=== PATIENT | female | born 1960 | race Caucasian/White ===

== ENCOUNTER → 2018-04-30 | Outpatient (CLI) | payer BC ==
--- NOTE | 2018-05-01 00:16 | MR ---
EXAMINATION TYPE: MR brain wo/w con DATE OF EXAM: 04/30/2018 COMPARISON: NONE HISTORY: Headaches, Gadavist 10ml TECHNIQUE: Multiplanar, multisequence images of the brain and brainstem is performed without and with IV contras t, utilizing 7.5 mL intravenous Gadavist . FINDINGS: Ventricles have fairly normal size. There is no mass effect nor midline shift. There is no sign of intracranial hemorrhage. The campa-white matter structures have fairly normal signal pattern. There is no evidence of cerebral edema. Brainstem appears normal. Corpus callosum appears normal. Pham la turcica appears normal. Optic chiasm appears normal. There is no pathologic enhancement. IMPRESSION: Negative MR scan of the brain.
== END | disposition home or self-care (01) ==
LOC: RADMRIMAIN 18:21
PROVIDERS: ATTEND Psychiatry & Neurology Neurology
DX: D43.2 Neoplasm of uncertain behavior of brain, unspecified (principal); R42 Dizziness and giddiness
CPT/HCPCS: 70553; A9581

== ENCOUNTER → 2019-09-18 | Outpatient (CLI) | payer BC ==
--- NOTE | 2019-09-18 21:27 | MR ---
EXAMINATION TYPE: MR brain wo/w con DATE OF EXAM: 09/18/2019 COMPARISON: Prior MRI brain April 30, 2018 HISTORY: headaches, Hx of breast ca TECHNIQUE: Multiplanar, multisequence images of the brain and brainstem is performed without and with IV contras t, utilizing 9 mL intravenous Gadavist . FINDINGS: Diffusion weighted images demonstrate no evidence of a recent infarct or other diffusion ab normality. There is no extra-axial fluid collection or significant white matter signal abnormality. The ventricular system and cisternal spaces are normal in size and appearance. The brain volume is age appropriate. Midline structures demonstrate normal morphology. The craniocervical junction appears within normal limits. Post contrast images demonstrate no abnormal enhancement. The dural venous sinuses appear pa tent. The visualized sinuses are clear and the globes are intact. Nasal septum remains deviated to th e left of midline. IMPRESSION: Unremarkable study. No significant change from prior.
== END | disposition home or self-care (01) ==
LOC: RADMRIMAIN 15:48
PROVIDERS: ATTEND Internal Medicine Medical Oncology
DX: R51 Headache (principal); Z85.3 Personal history of malignant neoplasm of breast
CPT/HCPCS: 70553; A9585

== ENCOUNTER → 2019-12-21 | Outpatient (CLI) | payer BC ==
--- NOTE | 2019-12-21 15:35 | MR ---
EXAMINATION TYPE: MR cervical spine wo/w con DATE OF EXAM: 12/21/2019 COMPARISON: MRI brain dated 09/18/2019 HISTORY: Cervical disc disorder. History of breast cancer. TECHNIQUE: Multiplanar, multisequence images of the cervical spine were acquired utilizing 9 mL intravenous Gada vist gadolinium contrast. Diffusion weighted imaging was performed. FINDINGS: The cervical spine vertebral bodies maintain normal vertebral body height and alignment. Mu ltilevel disc desiccation is seen. Very mild patchy T2 hyperintensity of the right paracentral spinal cord at the C4-C5 level. There is slight volume loss of the cord at this level indicative of myeloma lacia. C2-C3: Broad-based disc bulge without spinal canal stenosis or neural foraminal narrowing. C3-C4: Left foraminal disc herniation and uncovertebral hypertrophy creating moderate left neural for aminal narrowing. Spinal canal and right neuroforamen are patent. C4-C5: Left foraminal disc herniation superimposed on a broad-based disc bulge. Bilateral uncovertebr al hypertrophy and facet arthropathy creating severe left and moderate right neural foraminal narrowi ng as well as mild spinal canal stenosis. Focal mild myelomalacia is also seen. C5-C6: Left foraminal annular tear and disc herniation are seen superimposed on a broad-based disc bu lge. There is moderate left neural foraminal narrowing, mild right neural foraminal narrowing and mil d spinal canal stenosis. C6-C7: Disc desiccation without spinal canal stenosis or neural foraminal narrowing. C7-T1: Disc desiccation without spinal canal stenosis or neural foraminal narrowing. No abnormal enhancement is seen of the cervical spine and post contrast images. IMPRESSION: 1. Left foraminal disc herniation at C4-C5 as well as degenerative changes create severe left neural foraminal narrowing, moderate right neural foraminal narrowing and mild spinal canal stenosis and als o resultant mild focal myelomalacia of the cervical spinal cord. 2. Left foraminal disc herniation at C3-C4 creates moderate left neural foraminal narrowing. Spinal c anal is patent. 3. Left foraminal disc herniation at C5-C6 and broad-based disc bulge contribute to moderate left tiburcio ral foraminal narrowing, mild right neural foraminal narrowing and mild spinal canal stenosis. 4. No abnormal postcontrast enhancement of the cervical spine. 5. CT C3, C6-C7 and C7-T1 display mild degenerative disc disease without disc herniation.
== END | disposition home or self-care (01) ==
LOC: RADMRIMAIN 11:54
PROVIDERS: ATTEND Psychiatry & Neurology Neurology
DX: M48.02 Spinal stenosis, cervical region (principal); M50.221 Other cervical disc displacement at C4-C5 level; M50.31 Other cervical disc degeneration, high cervical region; M50.33 Other cervical disc degeneration, cervicothoracic region; M47.812 Spondylosis without myelopathy or radiculopathy, cervical region; G95.89 Other specified diseases of spinal cord
CPT/HCPCS: 72156; A9585

== ENCOUNTER → 2020-01-06 | Outpatient (CLI) | payer BC ==
--- NOTE | 2020-01-14 09:09 | MM ---
Reason for exam: additional evaluation requested from prior study. Last mammogram was performed 1 year and 4 months ago. History: Patient is postmenopausal and has history of breast cancer at age 58. Radiation therapy of the left breast, May 2019. Chemotherapy, November 2018. Mastectomy of the left breast, September 2018. Took hormonal contraceptives for 6 years. Physical Findings: Nurse did not find any significant physical abnormalities on exam. MG 3D Diag Mammo W/Cad LUIS Bilateral CC and MLO view(s) were taken. Prior study comparison: September 19, 2018, left breast mammogram, performed at [facility]. August 13, 2018, bilateral mammogram, performed at [facility]. January 09, 2016, bilateral mammogram, performed at [facility]. May 18, 2014, bilateral mammogram, performed at [facility]. The breast tissue is heterogeneously dense. This may lower the sensitivity of mammography. No significant new findings when compared with previous films. These results were verbally communicated with the patient on 01/14/20. ASSESSMENT: Benign, BI-RAD 2 RECOMMENDATION: Follow-up diagnostic mammogram of both breasts in 1 year.
== END | disposition home or self-care (01) ==
LOC: RADMAMWWP 15:14
PROVIDERS: ATTEND Internal Medicine Medical Oncology
DX: C50.412 Malignant neoplasm of upper-outer quadrant of left female breast (principal)
CPT/HCPCS: 77062; 77066

== ENCOUNTER → 2021-02-10 | Outpatient (CLI) | payer OTHER ==
--- NOTE | 2021-02-13 14:46 | MM ---
Reason for exam: additional evaluation requested from prior study. Last mammogram was performed 1 year and 1 month ago. History: Patient is postmenopausal and has history of breast cancer at age 58. Radiation therapy of the left breast, May 2019. Chemotherapy, November 2018. Mastectomy of the left breast, September 2018. Took hormonal contraceptives for 6 years. Physical Findings: Nurse did not find any significant physical abnormalities on exam. MG 3D Diag Mammo W/Cad LUIS Bilateral CC and MLO view(s) were taken. Prior study comparison: January 06, 2020, bilateral MG 3d diag mammo w/cad LUIS. September 19, 2018, left breast mammogram, performed at [place]. The breast tissue is heterogeneously dense. This may lower the sensitivity of mammography. Finding #1: There is a 10 mm obscured round mass in the left breast. Finding #2: There are typically benign round calcifications in both breasts. Distortion left upper outer quadrant. New finding since January 06, 2020. These results were verbally communicated with the patient and result sheet given to the patient on 02/10/21. ASSESSMENT: Incomplete: need additional imaging evaluation, BI-RAD 0 RECOMMENDATION: Ultrasound of the left breast.
--- NOTE | 2021-02-13 14:47 | USB ---
Reason for exam: additional evaluation requested from abnormal screening. History: Patient is postmenopausal and has history of breast cancer at age 58. Radiation therapy of the left breast, May 2019. Chemotherapy, November 2018. Mastectomy of the left breast, September 2018. Took hormonal contraceptives for 6 years. US Breast Limited LT Left limited breast ultrasound including focal area of concern, retroareolar and axilla demonstrates a 1.3 x 0.8 x 0.7cm benign lymph node at the axilla. These results were verbally communicated with the patient and result sheet given to the patient on 02/10/21. ASSESSMENT: Probably benign, BI-RAD 3 RECOMMENDATION: Follow-up diagnostic mammogram and ultrasound of the left breast in 6 months.
== END | disposition home or self-care (01) ==
LOC: RADMAMWWP 09:27
PROVIDERS: ATTEND Obstetrics & Gynecology
DX: N63.20 Unspecified lump in the left breast, unspecified quadrant (principal); Z85.3 Personal history of malignant neoplasm of breast; Z78.0 Asymptomatic menopausal state
CPT/HCPCS: 77062; 77066

== ENCOUNTER → 2021-06-22 | Outpatient (CLI) | payer OTHER ==
--- NOTE | 2021-06-23 05:00 | MR ---
EXAMINATION TYPE: MR wrist RT wo con DATE OF EXAM: 06/22/2021 COMPARISON: None HISTORY: Rt wrist pain Multiplanar multiecho imaging of the right wrist without contrast. The carpal bones are intact. Radiocarpal joint is anatomic. There is mild wrist joint effusion. There is small rounded 7 mm fluid collection at the anterior aspect of the distal ulna consistent with a s ynovial cyst. There is increased soft tissue signal on the dorsum of the distal radius and ulna. The flexor and extensor tendons appear intact. I see no focal bone destruction. Intercarpal joint spaces are fairly normal. The visualized metacarpals are intact. Triangular cartilage appears intact. IMPRESSION: Mild soft tissue edema on the dorsum of the radiocarpal joint. Small wrist joint effusion is suggesti ve of some mild nonspecific synovitis. No fracture seen. No significant joint space narrowing.
== END | disposition home or self-care (01) ==
LOC: RADMRIMAIN 08:17
PROVIDERS: ATTEND Orthopaedic Surgery
DX: M25.439 Effusion, unspecified wrist (principal); M79.89 Other specified soft tissue disorders

== ENCOUNTER → 2021-06-23 | Outpatient (CLI) | payer OTHER ==
[2021-06-23 22:56] LABS: Basophils # (A) 0.04 X 10*3/uL (0.00-0.10); Basophils % (A) 0.7 %; Eosinophils # (A) 0.15 X 10*3/uL (0.04-0.35); Eosinophils % (A) 2.6 %; HCT 37.5 % (37.2-46.3); HGB 12.2 g/dL (12.0-15.0); Lymphocytes # (A) 2.14 X 10*3/uL (0.90-5.00); Lymphocytes % (A) 37.6 %; MCH 30.3 pg (27.0-32.0); MCHC 32.5 g/dL (32.0-37.0); MCV 93.3 fL (80.0-97.0); Monocytes # (A) 0.74 X 10*3/uL (0.20-1.00); Neutrophils # (A) 2.61 X 10*3/uL (1.80-7.70); Neutrophils % (A) 45.9 %; Platelet Count 312 X 10*3/uL (140-440); RBC 4.02 X 10*6/uL (4.10-5.20); RDW 13.1 % (11.5-14.5); WBC 5.69 X 10*3/uL (4.50-10.00)
[2021-06-24 01:08] LABS: Erythrocyte Sedimentation Rate 12 mm/Hr (0-30)
[2021-06-24 06:02] LABS: C Reactive Protein <0.4 mg/dL (0.0-0.8); Rheumatoid Factor, Qnt 6 IU/mL (0-15); Uric Acid 3.4 mg/dL (2.9-7.7)
[2021-06-24 12:16] LABS: HLA B27 NEGATIVE
== END | disposition home or self-care (01) ==
LOC: LABWHC1 14:14
PROVIDERS: ATTEND Orthopaedic Surgery
DX: M25.532 Pain in left wrist (principal); M25.531 Pain in right wrist
CPT/HCPCS: 36415; 84550; 85025; 85652; 86038; 86140; 86431; 86812

== ENCOUNTER → 2021-08-14 | Outpatient (CLI) | payer MEDICARE ==
--- NOTE | 2021-08-14 14:59 | MM ---
Reason for exam: follow-up at short interval from prior study. Last mammogram was performed 6 months ago. History: Patient is postmenopausal and has history of breast cancer at age 58. Radiation therapy of the left breast, May 2019. Chemotherapy, November 2018. Mastectomy of the left breast, September 2018. Took hormonal contraceptives for 6 years. Physical Findings: Nurse did not find any significant physical abnormalities on exam. MG 3D Diag Mammo W/Cad LT CC and MLO view(s) were taken of the left breast. Prior study comparison: February 10, 2021, bilateral MG 3d diag mammo w/cad LUIS. January 06, 2020, bilateral MG 3d diag mammo w/cad LUIS. The breast tissue is heterogeneously dense. This may lower the sensitivity of mammography. Density in question 3 o'clock left breast is less conspicuous. These results were verbally communicated with the patient and result sheet given to the patient on 08/14/21. ASSESSMENT: Incomplete: need additional imaging evaluation, BI-RAD 0 RECOMMENDATION: Ultrasound of the left breast.
--- NOTE | 2021-08-14 15:00 | USB ---
Reason for exam: additional evaluation requested from abnormal screening. History: Patient is postmenopausal and has history of breast cancer at age 58. Radiation therapy of the left breast, May 2019. Chemotherapy, November 2018. Mastectomy of the left breast, September 2018. Took hormonal contraceptives for 6 years. US Breast Limited LT Technologist: Diana Velasquez Left limited breast ultrasound including focal area of concern, retroareolar and axilla demonstrates 0.5cm lymph node short axilla at the axilla. Scanned 3-6 o'clock. These results were verbally communicated with the patient and result sheet given to the patient on 08/14/21. ASSESSMENT: Benign, BI-RAD 2 RECOMMENDATION: Follow-up diagnostic mammogram of both breasts in 6 months.
== END | disposition home or self-care (01) ==
LOC: RADMAMWWP 13:24
PROVIDERS: ATTEND Internal Medicine Medical Oncology
DX: C50.412 Malignant neoplasm of upper-outer quadrant of left female breast (principal)
CPT/HCPCS: 77065; 76642; G0279; 77061

== ENCOUNTER → 2022-03-08 | Outpatient (CLI) | payer MEDICARE ==
--- NOTE | 2022-03-08 13:41 | MM ---
Reason for exam: additional evaluation requested from prior study. Last mammogram was performed 7 months ago. History: Patient is postmenopausal and has history of breast cancer at age 58. Radiation therapy of the left breast, May 2019. Chemotherapy, November 2018. Mastectomy of the left breast, September 2018. Took hormonal contraceptives for 6 years. Physical Findings: A clinical breast exam by your physician is recommended on an annual basis and results should be correlated with mammographic findings. MG 3D Diag Mammo W/Cad LUIS Bilateral CC and MLO view(s) were taken. Prior study comparison: August 14, 2021, left breast MG 3d diag mammo w/cad LT. February 10, 2021, bilateral MG 3d diag mammo w/cad LUIS. The breast tissue is heterogeneously dense. This may lower the sensitivity of mammography. Asymmetries are unchanged bilaterally. Post surgical and post therapy change left breast. Ongoing 6 month follow up to complete the 3 year post operative/post treatment surveillance. Results were given to the patient verbally at the time of the exam. ASSESSMENT: Probably benign, BI-RAD 3 RECOMMENDATION: Follow-up diagnostic mammogram of the left breast in 6 months.
== END | disposition home or self-care (01) ==
LOC: RADMAMWWP 12:51
PROVIDERS: ATTEND Obstetrics & Gynecology
DX: R92.8 Other abnormal and inconclusive findings on diagnostic imaging of breast (principal); Z85.3 Personal history of malignant neoplasm of breast; Z78.0 Asymptomatic menopausal state; Z92.3 Personal history of irradiation; Z90.12 Acquired absence of left breast and nipple
CPT/HCPCS: 77066; G0279; 77062

== ENCOUNTER → 2022-09-12 | Outpatient (CLI) | payer MEDICARE ==
--- NOTE | 2022-09-12 10:10 | MM ---
Reason for Exam: Follow-up at short interval from prior study. Last screening mammogram was performed 6 month(s) ago. Indicated Problems: Pain of the left side (Focal) for 6 Week(s) : 6 oclock pain. Patient History: Menarche at age 15. First Full-Term at age 27. Postmenopausal. Breast cancer, left, age 58. Previous chest radiation therapy. Previous chemotherapy at age 59. Patient used Hormonal Contraceptives for 6 years. 10/10/2018, Lumpectomy on the Left side. 11/2018, Chemotherapy. 05/2019, Radiation Therapy on the left side. Prior Study Comparison: 02/10/2021 Bilateral Diagnostic Mammogram, [facility]. 08/14/2021 Left Diagnostic Mammogram, [facility]. 03/08/2022 Bilateral Diagnostic Mammogram, [facility]. Tissue Density: Left: The breast tissue is heterogeneously dense. This may lower the sensitivity of mammography. Findings: Analyzed By CAD. Postsurgical and posttherapy changes to the left breast. Asymmetry is unchanged within the left breast. Stable calcifications within the left breast. No significant change from prior exams. Overall Assessment: Benign, BI-RAD 2 Management: Screening Mammogram of both breasts in 1 year. A clinical breast exam by your physician is recommended on an annual basis and results should be correlated with mammographic findings. This exam should not preclude additional follow-up of suspicious palpable abnormalities. Results were given to the patient verbally at the time of exam. Electronically signed and approved by: Chun Sepulveda D.O.
--- NOTE | 2022-09-12 10:10 | MM ---
Reason for Exam: Follow-up at short interval from prior study. Last screening mammogram was performed 6 month(s) ago. Indicated Problems: Pain of the left side (Focal) for 6 Week(s) : 6 oclock pain. Patient History: Menarche at age 15. First Full-Term at age 27. Postmenopausal. Breast cancer, left, age 58. Previous chest radiation therapy. Previous chemotherapy at age 59. Patient used Hormonal Contraceptives for 6 years. 10/10/2018, Lumpectomy on the Left side. 11/2018, Chemotherapy. 05/2019, Radiation Therapy on the left side. Prior Study Comparison: 02/10/2021 Bilateral Diagnostic Mammogram, [facility]. 08/14/2021 Left Diagnostic Mammogram, [facility]. 03/08/2022 Bilateral Diagnostic Mammogram, [facility]. Tissue Density: Left: The breast tissue is heterogeneously dense. This may lower the sensitivity of mammography. Findings: Analyzed By CAD. Postsurgical and posttherapy changes to the left breast. Asymmetry is unchanged within the left breast. Stable calcifications within the left breast. No significant change from prior exams. Overall Assessment: Benign, BI-RAD 2 Management: Screening Mammogram of both breasts in 1 year. A clinical breast exam by your physician is recommended on an annual basis and results should be correlated with mammographic findings. This exam should not preclude additional follow-up of suspicious palpable abnormalities. Results were given to the patient verbally at the time of exam. Electronically signed and approved by: Chun Sepulveda D.O.
== END | disposition home or self-care (01) ==
LOC: RADMAMWWP 09:27
PROVIDERS: ATTEND Obstetrics & Gynecology
DX: R92.8 Other abnormal and inconclusive findings on diagnostic imaging of breast (principal); Z78.0 Asymptomatic menopausal state; Z85.3 Personal history of malignant neoplasm of breast
CPT/HCPCS: 77065; G0279; 77061

== ENCOUNTER → 2023-04-10 | Outpatient (CLI) | payer MEDICARE ==
--- NOTE | 2023-04-10 10:27 | MM ---
Reason for Exam: Follow-up at short interval from prior study. Last mammogram was performed 1 year(s) and 1 month(s) ago. Patient History: Menarche at age 15. First Full-Term at age 27. Postmenopausal. Breast Cancer, Left, age 58. Previous chest radiation therapy at age 59. Previous chemotherapy at age 59. Patient used Hormonal Contraceptives for 6 year. 10/10/2018, Lumpectomy on the Left side. 11/2018, Chemotherapy. 05/2019, Radiation Therapy on the left side. Prior Study Comparison: 08/14/2021 Left Diagnostic Mammogram, [facility]. 03/08/2022 Bilateral Diagnostic Mammogram, [facility]. 09/12/2022 Left MG 3D diag mammo w/cad , [facility]. Tissue Density: The breast tissue is heterogeneously dense. This may lower the sensitivity of mammography. Findings: Analyzed By CAD. Lateral breast calcifications. Biopsy clips in the left axilla. No new suspicious masses, calcifications or distortions. Overall Assessment: Benign, BI-RAD 2 Management: Screening Mammogram of both breasts in 1 year. Results were given to the patient verbally at the time of exam. Patient should continue monthly self-breast exams. A clinical breast exam by your physician is recommended on an annual basis. This exam should not preclude additional follow-up of suspicious palpable abnormalities. Note on Selma scores and lifetime risk: 1. A Selma score greater than 3% is considered moderate risk. If this is the case, consider specialist referral to assess eligibility for a risk reducing agent. 2. If overall lifetime risk for the development of breast cancer is 20% or higher, the patient may qualify for future screening with alternating mammogram and breast MRI. Electronically signed and approved by: Giuseppe Hayes DO
== END | disposition home or self-care (01) ==
LOC: RADMAMWWP 08:53
PROVIDERS: ATTEND Obstetrics & Gynecology
DX: R92.8 Other abnormal and inconclusive findings on diagnostic imaging of breast (principal); N64.4 Mastodynia; Z85.3 Personal history of malignant neoplasm of breast; Z78.0 Asymptomatic menopausal state; Z92.3 Personal history of irradiation
CPT/HCPCS: 77066; G0279; 77062

== ENCOUNTER 2023-12-25 07:31 | Emergency (ER) | payer MEDICARE ==
[2023-12-25 08:04] VITALS: RESP 18
--- NOTE | 2023-12-25 08:16 | ED ---
General Adult HPI - General Chief complaint: Abdominal Pain Stated complaint: Abd Pain-Transfer Time Seen by Provider: 12/25/23 07:35 Source: patient Mode of arrival: ambulatory Limitations: no limitations - History of Present Illness Initial comments: Dictation was produced using [employer] dictation software. please excuse any grammatical, word or spelling errors. Chief Complaint: 63-year-old female transferred from [facility] for left-sided kidney stone History of Present Illness: Patient 63-year-old female over the last 1 to 2 days she has been experiencing left-sided flank pain. States that she thought she may have hurt it from working out. Suddenly in the evening last night she states that the pain became very sharp to her left flank. She was seen at [facility] emergency department she was diagnosed with left-sided UPJ 9 mm kidney stone. According to documentation she was transferred here for pain control and urology consultation. Patient states that while en route to the emergency department her symptoms slightly improved however she was given a dose of Dilaudid. The ROS documented in this emergency department record has been reviewed and confirmed by me. Those systems with pertinent positive or negative responses have been documented in the HPI. All other systems are other negative and/or noncontributory. - Related Data Previous Rx's Medication Instructions Recorded HYDROcodone/APAP 5-325MG [[place] 1 tab PO Q6HR PRN 3 Days #12 tab 12/25/23 5-325] Allergies Allergy/AdvReac Type Severity Reaction Status Date / Time cephalexin [From Keflex] AdvReac Nausea Verified 12/25/23 08:02 Review of Systems ROS Statement: Those systems with pertinent positive or pertinent negative responses have been documented in the HPI. ROS Other: All systems not noted in ROS Statement are negative. Past Medical History History of Any Multi-Drug Resistant Organisms: None Reported Past Psychological History: No Psychological Hx Reported Smoking Status: Never smoker Past Alcohol Use History: None Reported Past Drug Use History: None Reported General Exam - General Exam Comments Initial Comments: PHYSICAL EXAM: General Impression: Alert and oriented x3, not in acute distress HEENT: Normocephalic atraumatic, extra-ocular movements intact, pupils equal and reactive to light bilaterally, mucous membranes moist. Cardiovascular: Heart regular rate and rhythm Chest: Able to complete full sentences, no retractions, no tachypnea Abdomen: abdomen soft, non-tender, non-distended, no organomegaly Musculoskeletal: Pulses present and equal in all extremities, no peripheral edema Motor: no focal deficits noted Neurological: CN II-XII grossly intact, no focal motor or sensory deficits noted Skin: Intact with no visualized rashes Psych: Normal affect and mood Limitations: no limitations Course Vital Signs 12/25/23 07:57 Temperature 98.0 F Pulse Rate 104 H Respiratory 18 Rate Blood Pressure 121/79 O2 Sat by Pulse 96 Oximetry - Reevaluation(s) Reevaluation #1: 12/25/23 08:15 Transfer documentation was reviewed. She had minimal red blood cells in the urine. CT scan was reviewed showing 9 mm UPJ stone. Patient is in no acute distress at the bedside. Labs were otherwise unremarkable. Medical Decision Making - Medical Decision Making Was pt. sent in by a medical professional or institution (, PA, GALLERY DIRECTOR, urgent care, hospital, or custodial...) When possible be specific @ -Transferred from outside emergency department Did you speak to anyone other than the patient for history (EMS, parent, family, police, friend...)? What history was obtained from this source @ -No Did you review nursing and triage notes (agree or disagree)? Why? @ -I reviewed and agree with nursing and triage notes Were old charts reviewed (outside hosp., previous admission, EMS record, old EKG, old radiological studies, urgent care reports/EKG's, custodial records)? Report findings @ -No old charts were reviewed Differential Diagnosis (chest pain, altered mental status, abdominal pain women, abdominal pain men, vaginal bleeding, musculoskeletal, weakness, fever, dyspnea, syncope, headache, dizziness, GI bleed, back pain, seizure, CVA, palpatations, mental health)? @ -Differential Abdominal Pain Women: Appendicitis, Cholecystitis, diverticulosis, ischemic bowel, pancreatitis, hepatitis, UTI, gastroenteritis, AAA, incarcerated hernia, bowel obstruction, constipation, inflammatory bowel, hepatitis, peptic ulcer disease, splenic infarction, perforated viscus, vulvitis, ovarian torsion, PID, kidney stone, placenta abruption, this is not meant to be an all-inclusive list EKG interpreted by me (3pts min.). @ -None done X-rays interpreted by me (1pt min.). @ -X-ray shows calcification in the left pelvis which may represent nephrolithi asis CT interpreted by me (1pt min.). @ -None done U/S interpreted by me (1pt. min.). @ -None done What testing was considered but not performed or refused? (CT, X-rays, U/S, labs)? Why? @ -None What meds were considered but not given or refused? Why? @ -None Did you discuss the management of the patient with other professionals (professionals i.e. DrCailin, PA, GALLERY DIRECTOR, lab, RT, psych nurse, certified social workers in health care, wet machine operator, teacher, community services officer, case packer)? Give summary @ -Case was discussed with on-call urology, Dr. Dacosta who recommends patient be discharged with outpatient follow-up. Was smoking cessation discussed for >3mins.? @ -No Was critical care preformed (if so, how long)? @ -No Were there social determinants of health that impacted care today? How? (Homelessness, low income, unemployed, alcoholism, drug addiction, transportation, low edu. Level, literacy, decrease access to med. care, care home, rehab)? @ -No Was there de-escalation of care discussed even if they declined (Discuss DNR or withdrawal of care, Hospice)? DNR status @ -No What co-morbidities impacted this encounter? (DM, HTN, Smoking, COPD, CAD, Cancer, CVA, ARF, Chemo, Hep., AIDS, mental health diagnosis, sleep apnea, morbid obesity)? @ -None Was patient admitted / discharged? Hospital course, mention meds given and route, prescriptions, significant lab abnormalities, going to OR and other pertinent info. @ -63-year-old female presents emergency department as a transfer from outside emergency department for kidney stone. Vital signs upon arrival are within acceptable limits. Patient well-appearing at the bedside. She is in no acute distress. Physical examination is benign. Transfer documentation was reviewed showing 9 mm nephrolithiasis in the UPJ. Clinically her pain is now moved down to the pelvis suggesting migration of the stone. Patient likely will be able to pass the stone on her own with some time and hydration. Case discussed with urologist who states that patient is amenable for discharge if she is agreeable. Disposition options were discussed with patient she is agreeable with discharge. She is told to follow-up closely with outpatient urologist. Patient provided with analgesics. Undiagnosed new problem with uncertain prognosis? @ -No Drug Therapy requiring intensive monitoring for toxicity (Heparin, Nitro, Insulin, Cardizem)? @ -No Were any procedures done? @ -No Diagnosis/symptom? Acute, or Chronic, or Acute on Chronic? Uncomplicated (without systemic symptoms) or Complicated (systemic symptoms)? @ -Kidney stone Side effects of treatment? @ -No Exacerbation, Progression, or Severe Exacerbation? @ -No Poses a threat to life or bodily function? How? (Chest pain, [place], [place], pneumonia, PE, COPD, DKA, ARF, appy, cholecystitis, CVA, Diverticulitis, Homicidal, S uicidal, threat to staff... and all critical care pts) @ -yes Disposition Clinical Impression: Kidney stone Disposition: HOME SELF-CARE Condition: Fair Instructions (If sedation given, give patient instructions): Kidney Stones (ED) Prescriptions: HYDROcodone/APAP 5-325MG [[place] 5-325] 1 tab PO Q6HR PRN 3 Days #12 tab PRN Reason: Severe Pain Is patient prescribed a controlled substance at d/c from ED?: Yes If prescribed controlled substance>3 days was MAPS reviewed?: Prescribed <3 Days Referrals: Brad Rowe MD [STAFF PHYSICIAN] - 1-2 days Time of Disposition: 09:17
--- NOTE | 2023-12-25 08:25 | XR ---
EXAMINATION TYPE: XR KUB DATE OF EXAM: 12/25/2023 Comparison: None Clinical History: 63-year-old female L kidney stone, 9mm on CT at [place] Findings: Excreting contrast located within the bilateral renal collecting systems, left greater than right as well as the bladder. Distention of the left renal collecting system. There is a 6 mm density at the l eft abdominal pelvic junction, possible ureteral stone. Neither calyceal contrast versus a 9 mm stone right kidney. Nonobstructive bowel gas pattern. Moderate stool were noted. No evidence for free chyna toneal air. Impression: Left-sided moderate hydronephrosis. A 6 mm density at the left abdominopelvic junction could represen t a ureteral stone.
[2023-12-25] MEDS ORDERED: HYDROmorphone 1 MG/ML 1 ML SYRINGE IVP STA (09:20)
--- NOTE | 2023-12-25 09:45 | ED ---
Disposition Clinical Impression: Kidney stone Disposition: HOME SELF-CARE Condition: Fair Instructions (If sedation given, give patient instructions): Kidney Stones (ED) Prescriptions: HYDROcodone/APAP 5-325MG [[place] 5-325] 1 tab PO Q6HR PRN 3 Days #12 tab PRN Reason: Severe Pain Ondansetron Odt [Zofran Odt] 4 mg PO Q8HR PRN #12 tab PRN Reason: Nausea Is patient prescribed a controlled substance at d/c from ED?: Yes If prescribed controlled substance>3 days was MAPS reviewed?: Prescribed <3 Days Referrals: Brad Rowe MD [STAFF PHYSICIAN] - 1-2 days
[2023-12-25 10:00] VITALS: BP 145/89; PULSE 76; TEMP 98.1
== END 2023-12-25 09:55 | disposition home or self-care (01) ==
LOC: EC 07:31
DX: N13.2 Hydronephrosis with renal and ureteral calculous obstruction (principal); Z88.1 Allergy status to other antibiotic agents
CPT/HCPCS: 99284; 74018; 96374; J1170

== ENCOUNTER → 2024-01-01 | Outpatient (CLI) | payer MEDICARE ==
--- NOTE | 2024-01-01 13:47 | XR ---
EXAMINATION TYPE: XR KUB DATE OF EXAM: 01/01/2024 1:38 PM CLINICAL INDICATION:Female, 63 years old with history of N20.1 Left calculus ureter; [facility] COMPARISON: 12/25/2023 CT. TECHNIQUE: One radiographic view of the abdomen was obtained. FINDINGS: The bowel gas pattern is nonspecific without dilated loops of small or large bowel. There i s no evidence for organomegaly or pneumoperitoneum. The osseous structures are intact. Fecal mater ial and gas are demonstrated throughout the colon and rectum. Multilevel degeneration changes of spi ne. Moderate to large stool. Left renal calculus at the ureteropelvic Junction 12/25/2023 now appears to have be located at the pel srini brim measuring 8 mm. Multiple pelvic phlebolith are present. IMPRESSION: 1. Left renal calculus at the ureteropelvic Junction and 12/25/2023 now appears to have be located at the pelvic brim measuring 8 mm. 2. Moderate to large amount of stool, otherwise Nonspecific bowel gas pattern without radiographic e vidence for acute process.
== END | disposition home or self-care (01) ==
LOC: RADXRMAIN 13:20
PROVIDERS: ATTEND Urology
DX: N20.2 Calculus of kidney with calculus of ureter (principal)
CPT/HCPCS: 74018

== ENCOUNTER 2024-01-02 13:54 | Observation (INO) | payer MEDICARE ==
--- NOTE | 2024-01-02 14:18 | ED ---
Recheck HPI - General Chief Complaint: Urogenital Stated Complaint: Kidney stone Time Seen by Provider: 01/02/24 14:17 Source: patient, RN notes reviewed, old records reviewed Mode of arrival: ambulatory Limitations: no limitations - History of Present Illness Initial Comments: This is a 63-year-old female to the ER for evaluation. This patient returns today for evaluation regards to severe abdominal pain with known kidney stone history of kidney stones. Patient has been evaluated both in the emergency department with additional diagnosis as well as outpatient with urology for kidney stone scheduled for kidney stone removal about a week from today but pain is uncontrollable. Positive nausea no vomiting feels lightheaded like she may pass out with migraine headache MD Complaint: medication refill request (Severe uncontrolled pain from kidney stone) -: hour(s) Returns Today for: persistent/worsening pain related to initial visit Symptoms Since Prior Visit: worsening pain Associated Symptoms: none Treatments Prior to Arrival: Given Pain Meds on - Related Data Home Medications Medication Instructions Recorded Confirmed Atorvastatin Calcium [Lipitor] 40 mg PO HS 12/25/23 01/02/24 [place] 1 tab PO DAILY 12/25/23 01/02/24 Cholecalciferol [Vitamin D3 (25 50 mcg PO DAILY 12/25/23 01/02/24 Mcg = 1000 Iu)] Cyanocobalamin (Vitamin B-12) 1,000 mcg PO DAILY 12/25/23 01/02/24 [Vitamin B-12] L.acidoph,Paracasei, B.lactis 2 cap PO DAILY 12/25/23 01/02/24 [Probiotic] Lifetones 1 tab PO DAILY 12/25/23 01/02/24 Magic Mouthwash (Unknown) 1 dose PO DIRECTED PRN 12/25/23 01/02/24 Multivit with Calcium,Iron,Min 1 tab PO DAILY 12/25/23 01/02/24 [Women's Multivitamin] Omeprazole [PriLOSEC] 20 mg PO BID 12/25/23 01/02/24 Rizatriptan Odt [Maxalt Exercise Science Instructor] 10 mg PO DAILY PRN 12/25/23 01/02/24 Sennosides [Senokot] 8.6 mg PO TID 12/25/23 01/02/24 Venlafaxine HCl ER [Effexor Xr] 150 mg PO DAILY 12/25/23 01/02/24 Zinc Gluconate [Zinc] 50 mg PO DAILY 12/25/23 01/02/24 amLODIPine [Norvasc] 2.5 mg PO HS 12/25/23 01/02/24 buPROPion XL [Wellbutrin XL] 150 mg PO DAILY 12/25/23 01/02/24 Tamsulosin [Flomax] 0.4 mg PO DAILY 01/02/24 01/02/24 Previous Rx's Medication Instructions Recorded HYDROcodone/APAP 5-325MG [[place] 1 tab PO Q6HR PRN 3 Days #12 tab 12/25/23 5-325] Ondansetron Odt [Zofran Odt] 4 mg PO Q8HR PRN #12 tab 12/25/23 Allergies Allergy/AdvReac Type Severity Reaction Status Date / Time cephalexin [From Keflex] AdvReac Abdominal Verified 01/02/24 18:18 Pain Review of Systems ROS Statement: Those systems with pertinent positive or pertinent negative responses have been documented in the HPI. ROS Other: All systems not noted in ROS Statement are negative. Past Medical History Past Medical History: Hypertension Additional Past Medical History / Comment(s): kidney stones, hypercholestrol, m igraines, constipation, depression, acid reflux History of Any Multi-Drug Resistant Organisms: None Reported Past Surgical History: Orthopedic Surgery Additional Past Surgical History / Comment(s): left arm Past Psychological History: No Psychological Hx Reported Smoking Status: Never smoker Past Alcohol Use History: None Reported Past Drug Use History: None Reported General Exam Limitations: no limitations General appearance: alert, in no apparent distress Head exam: Present: atraumatic, normocephalic, normal inspection Eye exam: Present: normal appearance, PERRL, EOMI. Absent: scleral icterus, conjunctival injection, periorbital swelling ENT exam: Present: normal exam, mucous membranes moist Neck exam: Present: normal inspection. Absent: tenderness, meningismus, lymphadenopathy Respiratory exam: Present: normal lung sounds bilaterally. Absent: respiratory distress, wheezes, rales, rhonchi, stridor Cardiovascular Exam: Present: regular rate, normal rhythm, normal heart sounds. Absent: systolic murmur, diastolic murmur, rubs, gallop, clicks GI/Abdominal exam: Present: soft, normal bowel sounds. Absent: distended, tenderness, guarding, rebound, rigid Extremities exam: Present: normal inspection, full ROM, normal capillary refill. Absent: tenderness, pedal edema, joint swelling, calf tenderness Back exam: Present: normal inspection Neurological exam: Present: alert, oriented X3, CN II-XII intact Psychiatric exam: Present: normal affect, normal mood Skin exam: Present: warm, dry, intact, normal color. Absent: rash Course Vital Signs 01/02/24 01/02/24 14:09 17:43 Temperature 97.5 F L 97.8 F Pulse Rate 113 H 94 Respiratory 20 18 Rate Blood Pressure 94/66 148/94 O2 Sat by Pulse 97 100 Oximetry - Reevaluation(s) Reevaluation #1: 01/02/24 20:22 Medical record is reviewed Reevaluation #2: 01/02/24 20:22 Patient symptoms are unchanged 01/02/24 20:22 Pain is difficult to control 01/02/24 20:22 Patient now having migraine headache Reevaluation #3: 01/02/24 20:22 Patient informed of results questions answered Reevaluation #4: Was pt. sent in by a medical professional or institution (, PA, BALL TRUING MACHINE OPERATOR, urgent care, hospital, or [place] health care facility...) When possible be specific @ -no Did you speak to anyone other than the patient for history (EMS, parent, family, police, friend...)? What history was obtained from this source @ -no Did you review nursing and triage notes (agree or disagree)? Why? @ -agree Are old charts reviewed (outside hosp., previous admission, EMS record, old EKG, old radiological studies, urgent care reports/EKG's, [place] health care facility records)? Report findings @ -yes Differential Diagnosis (chest pain, altered mental status, abdominal pain women, abdominal pain men, vaginal bleeding, weakness, fever, dyspnea, syncope, h eadache, dizziness, GI bleed, back pain, seizure, CVA, palpatations, mental health, musculoskeletal)? @ -prior EKG interpreted by me (3pts min.). @ -yes X-rays interpreted by me (1pt min.). @ -yes negative for acute disease CT interpreted by me (1pt min.). @ -no U/S interpreted by me (1pt. min.). @ -no What testing was considered but not performed or refused? (CT, X-rays, U/S, labs)? Why? @ -none What meds were considered but not given or refused? Why? @ -none Did you discuss the management of the patient with other professionals (professionals i.e. , PA, BALL TRUING MACHINE OPERATOR, lab, RT, psych nurse, social sciences professor, reflow operator, teacher, media liaison officer, case sealer)? Give summary @ -no Was smoking cessation discussed for >3mins.? @ -no Was critical care preformed (if so, how long)? @ -no Were there social determinants of health that impacted care today? How? (Homelessness, low income, unemployed, alcoholism, drug addiction, transportation, low edu. Level, literacy, decrease access to med. care, correction, rehab)? @ -none Was there de-escalation of care discussed even if they declined (Discuss DNR or withdrawal of care, Hospice)? DNR status @ -no What co-morbidities impacted this encounter? (DM, HTN, Smoking, COPD, CAD, Cancer, CVA, ARF, Chemo, Hep., AIDS, mental health diagnosis, sleep apnea, morbid obesity)? @ -none Was patient admitted / discharged? Hospital course, mention meds given and route, prescriptions, significant lab abnormalities, going to OR and other pertinent info. @ - Undiagnosed new problem with uncertain prognosis? @ -no Drug Therapy requiring intensive monitoring for toxicity (Heparin, Nitro, Insulin, Cardizem)? @ -no Were any procedures done? @ -no Diagnosis/symptom? @ - Acute, or Chronic, or Acute on Chronic? @ -Acute Uncomplicated (without systemic symptoms) or Complicated (systemic symptoms)? @ -Complicated Side effects of treatment? @ -no Exacerbation, Progression, or Severe Exacerbation? @ -exacerbation Poses a threat to life or bodily function? How? (Chest pain, [place], [place], pneumonia, PE, COPD, DKA, ARF, appy, cholecystitis, CVA, Diverticulitis, Homicidal, Suicidal, threat to staff... and all critical care pts) @ -yes Reevaluation #5: 01/02/24 20:22 Differential Abdominal Pain Women: Appendicitis, Cholecystitis, diverticulosis, ischemic bowel, pancreatitis, hepatitis, UTI, gastroenteritis, AAA, incarcerated hernia, bowel obstruction, constipation, inflammatory bowel, hepatitis, peptic ulcer disease, splenic i nfarction, perforated viscus, vulvitis, ovarian torsion, PID, kidney stone, placenta abruption, this is not meant to be an all-inclusive list - Consultations Consultation #1: Spoke with Dr. Marianne jeffries who agrees to admit the patient Medical Decision Making - Medical Decision Making 63 male will be admitted for urology evaluation and treatment, n.p.o. status at midnight - Lab Data Result diagrams: 01/02/24 15:00 01/02/24 15:00 Lab Results 01/02/24 01/02/24 01/02/24 Range/Units 15:00 15:00 15:00 WBC 16.1 H (3.8-10.6) k/uL RBC 4.36 (3.80-5.40) m/uL Hgb 12.7 (11.4-16.0) gm/dL Hct 39.1 (34.0-46.0) % MCV 89.8 (80.0-100.0) fL MCH 29.1 (25.0-35.0) pg MCHC 32.4 (31.0-37.0) g/dL RDW 13.5 (11.5-15.5) % Plt Count 336 (150-450) k/uL MPV 7.3 Neutrophils % 87 % Lymphocytes % 5 % Monocytes % 6 % Eosinophils % 0 % Basophils % 0 % Neutrophils # 14.0 H (1.3-7.7) k/uL Lymphocytes # 0.9 L (1.0-4.8) k/uL Monocytes # 1.0 (0-1.0) k/uL Eosinophils # 0.1 (0-0.7) k/uL Basophils # 0.1 (0-0.2) k/uL Sodium 141 (137-145) mmol/L Potassium 3.6 (3.5-5.1) mmol/L Chloride 108 H (98-107) mmol/L Carbon Dioxide 23 (22-30) mmol/L Anion Gap 10 mmol/L BUN 18 H (7-17) mg/dL Creatinine 0.72 (0.52-1.04) mg/dL Est GFR (CKD-EPI)AfAm >90 (>60 ml/min/1.73 sqM) Est GFR (CKD-EPI)NonAf 90 (>60 ml/min/1.73 sqM) Glucose 108 H (74-99) mg/dL Calcium 9.6 (8.4-10.2) mg/dL Total Bilirubin 0.5 (0.2-1.3) mg/dL AST 28 (14-36) U/L ALT 22 (4-34) U/L Alkaline Phosphatase 107 (38-126) U/L Troponin I <0.012 (0.000-0.034) ng/mL Total Protein 7.3 (6.3-8.2) g/dL Albumin 4.3 (3.5-5.0) g/dL Amylase 184 H (30-110) U/L Lipase 90 (23-300) U/L Disposition Clinical Impression: Kidney stone, Left ureteral stone Disposition: ADMITTED IP TO [facility] Condition: Fair Is patient prescribed a controlled substance at d/c from ED?: No Time of Disposition: 16:40
[2024-01-02] MEDS: ONDANSETRON 4 MG/2 ML VIAL IVP STA (15:02)
[2024-01-02] MEDS: SODIUM CHLORIDE 0.9% 1,000 ML IV STA (15:02)
[2024-01-02] MEDS: KETOROLAC 15 MG/ML 1 ML VIAL IVP STA (15:02)
[2024-01-02] MEDS: HYDROmorphone 1 MG/ML 1 ML SYRINGE IVP STA (15:03)
[2024-01-02 15:22] LABS: Basophils # (A) 0.1 k/uL (0-0.2); Basophils % (A) 0 %; Eosinophils # (A) 0.1 k/uL (0-0.7); Eosinophils % (A) 0 %; HCT 39.1 % (34.0-46.0); HGB 12.7 gm/dL (11.4-16.0); Lymphocytes # (A) 0.9 k/uL (1.0-4.8); Lymphocytes % (A) 5 %; MCH 29.1 pg (25.0-35.0); MCHC 32.4 g/dL (31.0-37.0); MCV 89.8 fL (80.0-100.0); Mean Platelet Volume 7.3; Monocytes % (A) 6 %; Neutrophils % (A) 87 %; Platelet Count 336 k/uL (150-450); RBC 4.36 m/uL (3.80-5.40); RDW 13.5 % (11.5-15.5); WBC 16.1 k/uL (3.8-10.6)
[2024-01-02] MEDS: SODIUM CHLORIDE 0.9% 500 ML 500 ML IV STA (15:22)
[2024-01-02 15:44] LABS: ALT 22 U/L (4-34); AST 28 U/L (14-36); African American GFR (CKD) >90 (>60 ml/min/1.73 sqM); Albumin 4.3 g/dL (3.5-5.0); Alkaline Phosphatase 107 U/L (38-126); Amylase 184 U/L (30-110); Anion Gap 10 mmol/L; Blood Urea Nitrogen 18 mg/dL (7-17); Calcium 9.6 mg/dL (8.4-10.2); Carbon Dioxide 23 mmol/L (22-30); Chloride 108 mmol/L (98-107); Glucose 108 mg/dL (74-99); Lipase 90 U/L (23-300); Non-African American GFR(CKD) 90 (>60 ml/min/1.73 sqM); Potassium 3.6 mmol/L (3.5-5.1); Sodium 141 mmol/L (137-145); Total Bilirubin 0.5 mg/dL (0.2-1.3); Total Protein 7.3 g/dL (6.3-8.2)
[2024-01-02] MEDS ORDERED: NALOXONE 0.4 MG/ML 1 ML VIAL IV PRN (16:40)
[2024-01-02 17:13] LABS: Appearance,Urine Clear (Clear); Bilirubin,Urine Negative (Negative); Blood,Urine Moderate (Negative); Calcium Oxalate Crystals,Urine Rare /hpf; Color,Urine Yellow; Glucose,Urine (UA) Negative (Negative); Hyaline Casts,Urine 3 /lpf (0-2); Ketones,Urine Negative (Negative); Leukocyte Esterase,Urine Negative (Negative); Mucus,Urine Few /hpf; Nitrite,Urine Negative (Negative); Protein,Urine Negative (Negative); RBC,Urine 79 /hpf (0-5); Specific Gravity,Urine 1.014 (1.001-1.035); Squamous Epithelial Cell,Urine <1 /hpf (0-4); Urobilinogen,Urine <2.0 mg/dL (<2.0); WBC,Urine 3 /hpf (0-5)
[2024-01-02] MEDS: SODIUM CHLORIDE 0.9% 1,000 ML IV SCH (17:38)
[2024-01-02] MEDS: HYDROmorphone 1 MG/ML 1 ML SYRINGE IVP PRN (17:41)
[2024-01-02] MEDS: SUMAtriptan succinate 50 MG TAB PO PRN (19:46)
[2024-01-02] MEDS: ONDANSETRON 4 MG/2 ML VIAL IVP PRN (19:47)
[2024-01-02] MEDS: KETOROLAC 15 MG/ML 1 ML VIAL IVP PRN (19:47)
[2024-01-02] MEDS: amLODIPine 2.5 MG TAB PO SCH (19:48)
[2024-01-02] MEDS: SENNOSIDES 8.6 MG TAB PO SCH (19:48)
[2024-01-02] MEDS: ATORVASTATIN 40 MG TAB PO SCH (19:48)
[2024-01-02] MEDS ORDERED: diphenhydrAMINE 50 MG/ML 1 ML VIAL IVP PRN (20:21)
[2024-01-02] MEDS ORDERED: PROCHLORPERAZINE INJ 10 MG/2 ML VIAL IVP PRN (20:21)
[2024-01-03] MEDS: diphenhydrAMINE 50 MG/ML 1 ML VIAL IVP STA (01:22)
[2024-01-03] MEDS: PANTOPRAZOLE 40 MG TABLET PO SCH (06:06)
--- NOTE | 2024-01-03 08:39 | P.GSHP ---
History of Present Illness H&P Date: 01/03/24 Chief Complaint: Left renal colic The patient is a 63-year-old white female with no prior history of urolithiasis. On December 25, 2023 she experienced acute onset of left flank pain. CT scan showed evidence of left hydronephrosis due to a 9 mm left proximal ureteral calculus. She has experienced persistent mild pain since that time. KUB x-ray yesterday showed that the calculus had migrated to the level of the L-4, and she was presented with alternative options of management. These options include medical expulsion therapy, extracorporal shockwave lithotripsy (ESWL), and ureteroscopic removal of the calculus. She chose to undergo the latter, and this was scheduled to be performed on January 09, 2024. However, she is now admitted with intractable pain. - Constitutional Constitutional: Denies chills, Denies fever - Gastrointestinal Gastrointestinal: Reports nausea - Genitourinary (Female) Genitourinary: Reports flank pain, Reports kidney stones, Denies dysuria Past Medical History Past Medical History: Hypertension Additional Past Medical History / Comment(s): kidney stones, hypercholestrol, migraines, constipation, depression, acid reflux History of Any Multi-Drug Resistant Organisms: None Reported Past Surgical History: Orthopedic Surgery Additional Past Surgical History / Comment(s): left arm Past Psychological History: No Psychological Hx Reported Smoking Status: Never smoker Past Alcohol Use History: None Reported Past Drug Use History: None Reported Medications and Allergies Home Medications Medication Instructions Recorded Confirmed Type Atorvastatin Calcium [Lipitor] 40 mg PO HS 12/25/23 01/02/24 History Bonafide 1 tab PO DAILY 12/25/23 01/02/24 History Cholecalciferol [Vitamin D3 (25 50 mcg PO DAILY 12/25/23 01/02/24 History Mcg = 1000 Iu)] Cyanocobalamin (Vitamin B-12) 1,000 mcg PO DAILY 12/25/23 01/02/24 History [Vitamin B-12] HYDROcodone/APAP 5-325MG [[place] 1 tab PO Q6HR PRN 3 Days #12 tab 12/25/23 01/02/24 Rx 5-325] L.acidoph,Paracasei, B.lactis 2 cap PO DAILY 12/25/23 01/02/24 History [Probiotic] Lifetones 1 tab PO DAILY 12/25/23 01/02/24 History Magic Mouthwash (Unknown) 1 dose PO DIRECTED PRN 12/25/23 01/02/24 History Multivit with Calcium,Iron,Min 1 tab PO DAILY 12/25/23 01/02/24 History [Women's Multivitamin] Omeprazole [PriLOSEC] 20 mg PO BID 12/25/23 01/02/24 History Ondansetron Odt [Zofran Odt] 4 mg PO Q8HR PRN #12 tab 12/25/23 01/02/24 Rx Rizatriptan Odt [Maxalt Remanufacturing Technician] 10 mg PO DAILY PRN 12/25/23 01/02/24 History Sennosides [Senokot] 8.6 mg PO TID 12/25/23 01/02/24 History Venlafaxine HCl ER [Effexor Xr] 150 mg PO DAILY 12/25/23 01/02/24 History Zinc Gluconate [Zinc] 50 mg PO DAILY 12/25/23 01/02/24 History amLODIPine [Norvasc] 2.5 mg PO HS 12/25/23 01/02/24 History buPROPion XL [Wellbutrin XL] 150 mg PO DAILY 12/25/23 01/02/24 History Tamsulosin [Flomax] 0.4 mg PO DAILY 01/02/24 01/02/24 History Allergies Allergy/AdvReac Type Severity Reaction Status Date / Time cephalexin [From Keflex] AdvReac Abdominal Verified 01/02/24 18:18 Pain Surgical - Exam Vital Signs Temp Pulse Resp BP Pulse Ox 97.5 F L 113 H 20 94/66 97 01/02/24 14:09 01/02/24 14:09 01/02/24 14:09 01/02/24 14:09 01/02/24 14:09 - General well developed, well nourished, moderate distress - Respiratory normal respiratory effort - Abdomen Abdomen: soft, tender (Mild left lower quadrant tenderness to palpation), no guarding, no rigid, no rebound - Psychiatric oriented to time, oriented to person, oriented to place, speech is normal, mem ory intact Results - Labs 01/02/24 15:00 01/02/24 15:00 Abnormal Lab Results - Last 24 Hours (Table) 01/02/24 01/02/24 01/02/24 Range/Units 15:00 15:00 16:46 WBC 16.1 H (3.8-10.6) k/uL Neutrophils # 14.0 H (1.3-7.7) k/uL Lymphocytes # 0.9 L (1.0-4.8) k/uL Chloride 108 H (98-107) mmol/L BUN 18 H (7-17) mg/dL Glucose 108 H (74-99) mg/dL Amylase 184 H (30-110) U/L Urine Blood Moderate H (Negative) Urine RBC 79 H (0-5) /hpf Calcium Oxalate Crystal Rare H (None) /hpf Hyaline Casts 3 H (0-2) /lpf Urine Mucus Few H (None) /hpf Diabetes panel 01/02/24 Range/Units 15:00 Sodium 141 (137-145) mmol/L Potassium 3.6 (3.5-5.1) mmol/L Chloride 108 H (98-107) mmol/L Carbon Dioxide 23 (22-30) mmol/L BUN 18 H (7-17) mg/dL Creatinine 0.72 (0.52-1.04) mg/dL Glucose 108 H (74-99) mg/dL Calcium 9.6 (8.4-10.2) mg/dL AST 28 (14-36) U/L ALT 22 (4-34) U/L Alkaline Phosphatase 107 (38-126) U/L Total Protein 7.3 (6.3-8.2) g/dL Albumin 4.3 (3.5-5.0) g/dL Calcium panel 01/02/24 Range/Units 15:00 Calcium 9.6 (8.4-10.2) mg/dL Albumin 4.3 (3.5-5.0) g/dL Pituitary panel 01/02/24 Range/Units 15:00 Sodium 141 (137-145) mmol/L Potassium 3.6 (3.5-5.1) mmol/L Chloride 108 H (98-107) mmol/L Carbon Dioxide 23 (22-30) mmol/L BUN 18 H (7-17) mg/dL Creatinine 0.72 (0.52-1.04) mg/dL Glucose 108 H (74-99) mg/dL Calcium 9.6 (8.4-10.2) mg/dL Adrenal panel 01/02/24 Range/Units 15:00 Sodium 141 (137-145) mmol/L Potassium 3.6 (3.5-5.1) mmol/L Chloride 108 H (98-107) mmol/L Carbon Dioxide 23 (22-30) mmol/L BUN 18 H (7-17) mg/dL Creatinine 0.72 (0.52-1.04) mg/dL Glucose 108 H (74-99) mg/dL Calcium 9.6 (8.4-10.2) mg/dL Total Bilirubin 0.5 (0.2-1.3) mg/dL AST 28 (14-36) U/L ALT 22 (4-34) U/L Alkaline Phosphatase 107 (38-126) U/L Total Protein 7.3 (6.3-8.2) g/dL Albumin 4.3 (3.5-5.0) g/dL - Imaging Abdominal x-ray: report reviewed, image reviewed CT scan - abdomen: report reviewed, image reviewed Assessment and Plan (1) Left ureteral stone Current Visit: Yes Status: Acute Code(s): N20.1 - CALCULUS OF URETER SNOMED Code(s): 57983702 (2) Hydronephrosis with renal and ureteral calculous obstruction Current Visit: Yes Status: Acute Code(s): N13.2 - HYDRONEPHROSIS WITH RENAL AND URETERAL CALCULOUS OBSTRUCTION SNOMED Code(s): 519885119 Plan: The patient was admitted with intractable pain. She will be treated with IV hydration and parenteral analgesics. Arrangements will be made for her to undergo cystoscopy, left ureteroscopy with Holmium laser lithotripsy and possible stone basketing, left ureteral stent insertion. She is aware of potential risks, which include anesthesia, bleeding, infection, inability to remove the calculus, and ureteral injury. Time with Patient: Greater than 30
--- NOTE | 2024-01-03 09:43 | XR ---
EXAMINATION TYPE: XR KUB DATE OF EXAM: 01/03/2024 COMPARISON: 01/01/2024 HISTORY: Preop for cystogram TECHNIQUE: One view abdominal series FINDINGS: Bowel gas pattern is nonspecific. Retained oral constipation. Periventricular spine with degenerative change. 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 There are calcifications along the left iliac crest likely lying outside of the left ureter. Kidneys: No suspicious calcifications overlying the renal outlines. Pelvis: Numerous vascular phleboliths. Previously noted calcification adjacent to L4 appears to migra rajani just above the level of the UVJ measuring approximately 4 mm in diameter. IMPRESSION: 1. Interval migration of left ureteral calculus to the level just above the UVJ.
[2024-01-03] MEDS: VENLAFAXINE HCL ER 150 MG CAP PO SCH (10:00)
[2024-01-03] MEDS: TAMSULOSIN 0.4 MG CAP.ER.24H PO SCH (10:00)
[2024-01-03] MEDS: ZINC SULFATE 220 MG CAP PO SCH (10:00)
[2024-01-03] MEDS: CHOLECALCIFEROL 25 MCG (1000 IU) TABLET PO SCH (10:00)
[2024-01-03] MEDS: buPROPion XL 150 MG TAB.ER.24H PO SCH (10:00)
[2024-01-03] MEDS: LACTATED RINGERS 1,000 ML IV ONE (14:52)
[2024-01-03] MEDS: ONDANSETRON 4 MG/2 ML VIAL IVP ONE (15:10)
[2024-01-03] MEDS: DEXAMETHASONE SOD PHOSPHATE 4 MG/ML 1 ML VIAL IVP ONE (15:11)
[2024-01-03] MEDS ORDERED: PROPOFOL 10 MG/ML 20 ML VIAL IV ONE (15:49)
[2024-01-03] MEDS ORDERED: fentaNYL (PF) 50 MCG/ML 2 ML AMP ONE (15:49)
[2024-01-03] MEDS ORDERED: SUCCINYLCHOLINE CHLORIDE 200 MG/10 ML VIAL IV ONE (15:49)
[2024-01-03] MEDS ORDERED: LIDOCAINE 1% INJ 10MG/ML (20 ML MDV) ONE (15:49)
[2024-01-03] MEDS ORDERED: MIDAZOLAM 2 MG/2 ML VIAL ONE (15:49)
[2024-01-03] MEDS ORDERED: ePHEDrine 50 MG/ML 1 ML VIAL ONE (15:49)
[2024-01-03] MEDS: GENTAMICIN 120 MG in SODIUM CHLORIDE 0.9% 100 ML IVPB ONE (15:52)
[2024-01-03] MEDS: IOPAMIDOL-370 100ML BTL MISCELLANE ONE (16:15)
--- NOTE | 2024-01-03 17:26 | P.OP ---
Date of Procedure: 01/03/24 Preoperative Diagnosis: Left ureteral calculus Postoperative Diagnosis: Same Procedure(s) Performed: Cystoscopy, left retrograde pyelogram, left ureteroscopy with Holmium laser lithotripsy and stone basketing, left ureteral stent insertion Anesthesia: MINE Surgeon: Pedro Barnes Estimated Blood Loss (ml): 0 Pathology: other (Left ureteral calculus fragments, sent for chemical analysis) Condition: stable Disposition: PACU Indications for Procedure: The patient is a 63-year-old white female with no prior history of urolithiasis. On December 25, 2023 she experienced acute onset of left flank pain. CT scan showed evidence of left hydronephrosis due to a 9 mm left proximal ureteral calculus. She has experienced persistent mild pain since that time. KUB x-ray yesterday showed that the calculus had migrated to the level of the L-4, and she was presented with alternative options of management. These options include medical expulsion therapy, extracorporal shockwave lithotripsy (ESWL), and ureteroscopic removal of the calculus. She chose to undergo the latter, and this was scheduled to be performed on January 09, 2024. However, she is now admitted with intractable pain and has elected to undergo ureteroscopic removal of the calculus today. Preoperative KUB x-ray suggests that the calculus has migrated to the distal ureter. Operative Findings: Left distal ureteral calculus, fragmented and removed completely. Description of Procedure: The patient was taken to the operating room and placed in the dorsolithotomy position, with legs supported in Richard stirrups. The external genitalia was prepped and draped sterilely. The 30 lens was used to introduce the 21-Citizen Of [place] Jamil cystoscopic sheath through the urethra and into the bladder under direct vision. The bladder was examined in its entirety. Both ureteral orifices were normal anatomic location and configuration. No tumors or foreign bodies were seen. Using a 10 Citizen [place] cone-tip catheter, a left retrograde pyelogram was performed. This confirmed the presence of a calculus within the left distal ureter. The cystoscope was removed. The Jamil semirigid ureteroscope was advanced into the bladder, and the left ureteral orifice was cannulated. However, the ureteroscope could not be advanced through the intramural portion of the ureter. An angled tip 0.035 inch Glidewire was passed through the ureteroscope, beyond the calculus and up to the left renal pelvis. The ureteroscope was removed, and the Glidewire was backloaded into the cystoscope, which was passed into the bladder. A 4 cm, 15 Citizen [place] balloon dilating catheter was used to dilate the intramural portion of the ureter. After removing the balloon dilating catheter and the cystoscope, the ureteroscope was replaced into the bladder. Without difficulty, the ureteroscope was advanced up to the calculus. The 365 micron Holmium laser probe was passed through the ureteroscope, and lithotripsy was performed. The calculus was very dense, likely composed of calcium oxalate mono hydrate. After fragmenting the calculus, a 1.9 [place] 0 tip nitinol basket was used to remove all calculus fragments from the ureter. Final inspection of the ureter showed no residual calculus fragments, and no evidence of ureteral trauma. The ureteroscope was removed. The cystoscope was replaced into the bladder. The Glidewire was passed up to the left renal pelvis, and a 26 cm, 4.8 [place] double-J ureteral stent was placed over the wire. Proper stent positioning was verified fluoroscopically and endoscopically. The bladder was emptied and the cystoscope removed. The retrieved calculus fragments were saved and sent for chemical analysis. The string attached to the stent was secured to the patient's right inner thigh using a Tegaderm dressing. The patient tolerated the procedure well and was taken to the recovery room in stable condition. BERNY ISHA Report: Procedure Acuity: Urgent Stone Size and Location: 9 mm, left distal ureter Ureteral Dilation: Balloon Dilation Ureteral Access Sheath Used: No Stone Sent for Analysis: Yes All Stones/Fragments Were Removed with a Basket: Yes Complications: No Preoperative Antibiotics Given: Yes Stent Placed: Yes If Stent Placed, Was String Left Attached: Yes If Stent Placed, When is it to be Removed: 1 week Discharge Medications: Toradol, tamsulosin
--- NOTE | 2024-01-03 19:09 | FL ---
EXAMINATION TYPE: FL urography retrograde Intraoperative/procedural fluoroscopic services were provid ed. Total fluoroscopy time is 45.2 seconds with a total of 2 submitted images to PACS. Please see the operative/procedural note for further details. DAP: [id number] mGym2
[2024-01-04 07:53] VITALS: BP 126/63; PULSE 82; RESP 17; TEMP 98.4
--- NOTE | 2024-01-04 10:53 | P.DS ---
Providers Date of admission: 01/02/24 16:46 Expected date of discharge: 01/04/24 Attending physician: Pedro Barnes Primary care physician: Physician Nonstaff - Discharge Diagnosis(es) (1) Left ureteral stone Current Visit: Yes Status: Acute (2) Hydronephrosis with renal and ureteral calculous obstruction Current Visit: Yes Status: Acute Hospital Course: The patient presented with intractable renal colic due to a 9 mm left ureteral calculus. She was admitted and treated with IV hydration and parenteral analgesics. On January 03, she underwent ureteroscopic removal of the calculus, and a ureteral stent was placed. She remained afebrile with stable vital signs. She reported moderate discomfort the following day, as well as hematuria and urinary urge incontinence. She was reassured that the hematuria and urge incontinence are the result of the surgery and the ureteral stent. Procedures: Cystoscopy, left ureteroscopy with Holmium laser lithotripsy and stone basketing, left ureteral stent insertion on January 03, 2024. Patient Condition at Discharge: Good Plan - Discharge Summary Discharge Rx Participant: No New Discharge Prescriptions: New Tolterodine ER [Detrol LA] 4 mg PO DAILY #14 cap Ketorolac [Toradol] 10 mg PO Q6HR PRN #10 tab PRN Reason: Pain No Action HYDROcodone/APAP 5-325MG [[place] 5-325] 1 tab PO Q6HR PRN 3 Days #12 tab PRN Reason: Severe Pain Sennosides [Senokot] 8.6 mg PO TID Cyanocobalamin (Vitamin B-12) [Vitamin B-12] 1,000 mcg PO DAILY Cholecalciferol [Vitamin D3 (25 Mcg = 1000 Iu)] 50 mcg PO DAILY Atorvastatin Calcium [Lipitor] 40 mg PO HS Ondansetron Odt [Zofran Odt] 4 mg PO Q8HR PRN #12 tab PRN Reason: Nausea Zinc Gluconate [Zinc] 50 mg PO DAILY Multivit with Calcium,Iron,Min [Women's Multivitamin] 1 tab PO DAILY Bonafide 1 tab PO DAILY L.acidoph,Paracasei, B.lactis [Probiotic] 2 cap PO DAILY buPROPion XL [Wellbutrin XL] 150 mg PO DAILY Venlafaxine HCl ER [Effexor Xr] 150 mg PO DAILY Rizatriptan Odt [Maxalt Front Desk Host] 10 mg PO DAILY PRN PRN Reason: Migraine Headache Omeprazole [PriLOSEC] 20 mg PO BID amLODIPine [Norvasc] 2.5 mg PO HS Magic Mouthwash (Unknown) 1 dose PO DIRECTED PRN PRN Reason: IRRITATION Lifetones 1 tab PO DAILY Tamsulosin [Flomax] 0.4 mg PO DAILY Discharge Medication List Atorvastatin Calcium [Lipitor] 40 mg PO HS 12/25/23 [History] Bonafide 1 tab PO DAILY 12/25/23 [History] Cholecalciferol [Vitamin D3 (25 Mcg = 1000 Iu)] 50 mcg PO DAILY 12/25/23 [History] Cyanocobalamin (Vitamin B-12) [Vitamin B-12] 1,000 mcg PO DAILY 12/25/23 [History] HYDROcodone/APAP 5-325MG [[place] 5-325] 1 tab PO Q6HR PRN 3 Days #12 tab 12/25/23 [Rx] L.acidoph,Paracasei, B.lactis [Probiotic] 2 cap PO DAILY 12/25/23 [History] Lifetones 1 tab PO DAILY 12/25/23 [History] Magic Mouthwash (Unknown) 1 dose PO DIRECTED PRN 12/25/23 [History] Multivit with Calcium,Iron,Min [Women's Multivitamin] 1 tab PO DAILY 12/25/23 [History] Omeprazole [PriLOSEC] 20 mg PO BID 12/25/23 [History] Ondansetron Odt [Zofran Odt] 4 mg PO Q8HR PRN #12 tab 12/25/23 [Rx] Rizatriptan Odt [Maxalt Front Desk Host] 10 mg PO DAILY PRN 12/25/23 [History] Sennosides [Senokot] 8.6 mg PO TID 12/25/23 [History] Venlafaxine HCl ER [Effexor Xr] 150 mg PO DAILY 12/25/23 [History] Zinc Gluconate [Zinc] 50 mg PO DAILY 12/25/23 [History] amLODIPine [Norvasc] 2.5 mg PO HS 12/25/23 [History] buPROPion XL [Wellbutrin XL] 150 mg PO DAILY 12/25/23 [History] Tamsulosin [Flomax] 0.4 mg PO DAILY 01/02/24 [History] Ketorolac [Toradol] 10 mg PO Q6HR PRN #10 tab 01/04/24 [Rx] Tolterodine ER [Detrol LA] 4 mg PO DAILY #14 cap 01/04/24 [Rx] Follow up Appointment(s)/Referral(s): None,Stated [REFERRING] - 1-2 days Pedro Barnes MD [STAFF PHYSICIAN] - 01/10/24 Activity/Diet/Wound Care/Special Instructions: Drink plenty of fluids. Diet as tolerated. Activity as tolerated. Patient needs to be careful not to pull the string which is attached to her ureteral stent. Discharge Disposition: HOME SELF-CARE
== END 2024-01-04 12:27 | disposition home or self-care (01) ==
LOC: EC 13:54 → 6NMEDSUR 16:46
PROVIDERS: ADMIT Urology; ATTEND Urology
DX: N13.2 Hydronephrosis with renal and ureteral calculous obstruction (principal); I10 Essential (primary) hypertension; E78.00 Pure hypercholesterolemia, unspecified; Z79.899 Other long term (current) drug therapy; Z88.1 Allergy status to other antibiotic agents
CPT/HCPCS: 52356; 96376 ×2; 96361; 96365; 96366; 96367 ×2; 96375 ×2; 99285; 36415; 80053; 82150; 83690; 84484; 85025; 81001; 82365; 74420; 74018; G0378 ×3; C2625; C1769; C1758; J2250; J0330; J1200; J1100; J2405 ×2; J2001; J3010; J1580; J1170 ×3; J1885 ×2; J2704; Q9967

== ENCOUNTER → 2024-02-06 | Outpatient (CLI) | payer MEDICARE ==
--- NOTE | 2024-02-07 16:03 | US ---
EXAMINATION TYPE: US kidneys/renal and bladder DATE OF EXAM: 02/06/2024 COMPARISON: NONE CLINICAL INDICATION: Female, 63 years old with history of N20.1 CALCULUS OF URETER; Hx left ureter st one EXAM MEASUREMENTS: Right Kidney: 11.9x4.5x4.9 cm Left Kidney: 11.6x5.0x5.4 cm Right Kidney: No hydronephrosis or masses seen Left Kidney: No hydronephrosis or masses seen Bladder: wnl Bilateral Jets seen: Yes IMPRESSION: No hydronephrosis.
== END | disposition home or self-care (01) ==
LOC: RADUSWWP 13:25
PROVIDERS: ATTEND Urology
DX: N20.1 Calculus of ureter (principal)
CPT/HCPCS: 76770

== ENCOUNTER → 2024-04-14 | Outpatient (CLI) | payer MEDICARE ==
--- NOTE | 2024-04-14 13:51 | MM ---
Reason for Exam: Clinical finding. Last mammogram was performed 2 year(s) and 1 month(s) ago. Indicated Problems: Lump or thickening of the right side for 1 Month(s). Patient History: Menarche at age 15. First Full-Term at age 27. Postmenopausal. Breast cancer, left, age 58. Previous chest radiation therapy at age 59. Previous chemotherapy at age 59. Patient used Hormonal Contraceptives for 6 years. 10/10/2018, Lumpectomy on the Left side. 11/2018, Chemotherapy. 05/2019, Radiation Therapy on the left side. Prior Study Comparison: 08/13/2018 Bilateral Screening Mammogram, [facility]. 09/19/2018 Left Screening Mammogram, [facility]. 01/06/2020 Bilateral Diagnostic Mammogram, [facility]. 02/10/2021 Bilateral Diagnostic Mammogram, [facility]. 08/14/2021 Left Diagnostic Mammogram, [facility]. 03/08/2022 Bilateral Diagnostic Mammogram, [facility]. 09/12/2022 Left MG 3D diag mammo w/cad LT, [facility]. 04/10/2023 Bilateral MG 3D diag mammo w/cad LUIS, [facility]. Tissue Density: The breasts are heterogeneously dense, which may obscure small masses. Findings: Analyzed By CAD. The pattern appears stable. Scattered benign-appearing calcifications are present. No suspicious cluster microcalcifications are evident. Bilateral breasts are marked for palpable areas including the upper outer right breast lower inner aspect left breast. No underlying mammographic abnormalities in these locations. Ultrasound is recommended for additional evaluation. Overall Assessment: Incomplete: need additional imaging evaluation, BI-RAD 0 Management: Diagnostic Breast Ultrasound of both breasts. A negative mammogram report should not preclude additional follow up of suspicious palpable abnormalities. Patient should continue monthly self breast exam. A clinical breast exam by your physician is recommended on an annual basis and results should be correlated with mammographic findings. Note on [place] scores and lifetime risk: 1. A [place] score greater than 3% is considered moderate risk. If this is the case, consider specialist referral to assess eligibility for a risk reducing agent. 2. If overall lifetime risk for the development of breast cancer is 20% or higher, the patient may qualify for future screening with alternating mammogram and breast MRI. Electronically signed and approved by: Yeyo Moses D.O. Radiologis
--- NOTE | 2024-04-14 14:37 | USB ---
Reason for Exam: Clinical finding. Patient History: Menarche at age 15. First Full-Term at age 27. Postmenopausal. Breast cancer, left, age 58. Previous chest radiation therapy at age 59. Previous chemotherapy at age 59. Patient used Hormonal Contraceptives for 6 years. 10/10/2018, Lumpectomy on the Left side. 11/2018, Chemotherapy. 05/2019, Radiation Therapy on the left side. Technique: Method: Targeted. Prior Study Comparison: 03/08/2022 Bilateral Diagnostic Mammogram, [facility]. 09/12/2022 Left MG 3D diag mammo w/cad LT, [facility]. 04/10/2023 Bilateral MG 3D diag mammo w/cad [facility], [facility]. Findings: The area of palpable concern of both breasts, the axilla of both breasts and the retroareolar of both breasts were scanned. Left breast: No discrete cystic or solid lesion evident at the palpable region. Right breast: At the level of the palpable abnormality there appears to be a small lymph node measuring 0.6 x 0.3 x 0.7 cm. This has a hilum. No suspicious cystic or solid lesions are identified within the right breast the palpable abnormality otherwise. Overall Assessment: Benign, BI-RAD 2 Management: Screening Mammogram of both breasts in 1 year. A clinical breast exam by your physician is recommended on an annual basis and results should be correlated with mammographic findings. This exam should not preclude additional follow-up of suspicious palpable abnormalities. Results were given to the patient verbally at the time of exam. Electronically signed and approved by: Yeyo Moses D.O. Radiologis
== END | disposition home or self-care (01) ==
LOC: RADMAMWWP 12:52
PROVIDERS: ATTEND Internal Medicine Medical Oncology
DX: R92.333 Mammographic heterogeneous density, bilateral breasts (principal); C50.412 Malignant neoplasm of upper-outer quadrant of left female breast; R92.1 Mammographic calcification found on diagnostic imaging of breast; Z78.0 Asymptomatic menopausal state
CPT/HCPCS: 77066; 76642; G0279; 77062

== ENCOUNTER → 2025-05-12 | Outpatient (CLI) | payer MEDICARE, OTHER ==
--- NOTE | 2025-05-12 15:46 | MM ---
Reason for Exam: Screening (asymptomatic). Last mammogram was performed 1 year(s) and 1 month(s) ago. Patient History: Menarche at age 15. First Full-Term at age 27. Postmenopausal. Breast cancer, left, age 58. Previous chest radiation therapy at age 59. Previous chemotherapy at age 59. Patient used Hormonal Contraceptives for 6 years. 10/10/2018, Lumpectomy on the Left side. 11/2018, Chemotherapy. 05/2019, Radiation Therapy on the left side. Prior Study Comparison: 09/12/2022 Left MG 3D diag mammo w/cad LT, [facility]. 04/10/2023 Bilateral MG 3D diag mammo w/cad [facility], [facility]. 04/14/2024 Bilateral MG 3D diag mammo w/cad [facility], [facility]. Tissue Density: The breasts are heterogeneously dense, which may obscure small masses. Findings: Analyzed By CAD. Bilateral areas of asymmetric density remain unchanged. Postsurgical changes in the left axilla redemonstrated. Benign oil cyst calcifications on the left. There is no suspicious group of microcalcifications or new suspicious mass in either breast. Overall Assessment: Benign, BI-RAD 2 Management: Screening Mammogram of both breasts in 1 year. Patient should continue monthly self-breast exams. A clinical breast exam by your physician is recommended on an annual basis. This exam should not preclude additional follow-up of suspicious palpable abnormalities. [facility], , 05/12/2025 3:43 PM. Electronically signed and approved by: Kylie Nelson M.D. Radiologist
--- NOTE | 2025-05-12 16:38 | BD ---
EXAMINATION TYPE: Axial Bone Density DATE OF EXAM: 05/12/2025 CLINICAL HISTORY: 64 years old Female. ICD-10 CODE: Z78.0 MENOPAUSAL , Additional History: Height: 5 ft 7 in Weight: 201 FRAX RISK QUESTIONS: Alcohol (3 or more units per day): no Family History (Parent hip fracture): no Glucocorticoids (More than 3mos): no (Ex: prednisone, prednisolone, methylprednisolone, dexamethasone, and hydrocortisone). History of Fracture in Adulthood: yes Secondary Osteoporosis: 1. Type 1 Diabetes: no 2. Hyperthyroidism: no 3. Menopause before 45: no 4. Malnutrition: no 5. Chronic liver disease: no Rheumatoid Arthritis: no Current Tobacco Use: no RISK FACTORS HISTORY OF: Surgery to Spine/Hip(right/left)/Wrist (right/left): left wrist When: 2022 MEDICATIONS: Thyroid Medications: none Osteoporosis Medications: none EXAM MEASUREMENTS: Bone mineral densitometry was performed using the [employer] System. Bone mineral density as measured about the Lumbar spine is: ----- L1-L4(G/cm2): 1.166 T Score Values are as follows: ----- L1: 0.2 ----- L2: -1.0 ----- L3: -0.2 ----- L4: 0.4 ----- L1-L4: -0.1 Z Score Values are as follows: ----- L1: 0.9 ----- L2: -0.3 ----- L3: 0.5 ----- L4: 1.2 ----- L1-L4: 0.6 baseline Bone mineral density about the R hip (g/cm2): 0.861 Bone mineral density about the L hip (g/cm2): 0.873 T Score values are as follows: -----R Neck: -1.3 -----L Neck: -1.2 -----R Total: -0.8 -----L Total: -0.8 Z Score values are as follows: -----R Neck: -0.3 -----L Neck: -0.3 -----R Total: -0.2 -----L Total: -0.2 baseline FRAX%s: The graph provided illustrates a 8.2 % chance for a major osteoporotic fx and a 0.7 % chance for the hips probability for fx in 10 years time. IMPRESSION: Osteopenia (T Score between -2.5 and -1). There is slightly increased risk of fracture and the patient may be considered for treatment. Re-Screen 2-5 years. NOTE: T-SCORE=SD OF THE YOUNG ADULT MEAN. [facility], , 05/12/2025 4:36 PM
== END | disposition home or self-care (01) ==
LOC: RADMAMWWP 14:29
PROVIDERS: ATTEND Internal Medicine
DX: Z12.31 Encounter for screening mammogram for malignant neoplasm of breast (principal); R92.333 Mammographic heterogeneous density, bilateral breasts; Z78.0 Asymptomatic menopausal state; M85.89 Other specified disorders of bone density and structure, multiple sites; Z85.3 Personal history of malignant neoplasm of breast; Z92.0 Personal history of contraception
CPT/HCPCS: 77063; 77067; 77080